=== PATIENT | female | born 1995 | race Hispanic/Latino ===

== ENCOUNTER 2016-10-07 23:03 | Emergency (ER) | payer OTHER ==
[~2016-10-07] VITALS: Ht 162.6 cm; Wt 63.6 kg
[~2016-10-07 23:03] MED LIST: Ibuprofen PO
[2016-10-07 23:05] VITALS: BP 105/48; PULSE 82; RESP 16; O2SAT 99
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
[2016-10-07] MEDS ORDERED: _oxyCODONE/APAP 5-325 mg Tablet PO PRN (23:40)
[2016-10-07] MEDS ORDERED: oxyCODONE-Acetamin 5-325 mg Tablet PO ONE (23:40)
[2016-10-08 01:11] VITALS: BP 96/50; PULSE 72; RESP 16; O2SAT 100
[2016-10-08 01:12] VITALS: BP 96/50; PULSE 72; RESP 16; O2SAT 100
--- NOTE | 2016-10-08 11:19 | DRSVH ---
PROCEDURE: X-RAY RIGHT FOOT COMPLETE, MINIMUM THREE VIEWS ([id number]) INDICATIONS: trauma, bone graft injury TECHNIQUE: 3 views of the foot were acquired. COMPARISON: [facility], CR, XR BILAT ANKLE 3VW, 10/07/2016, 23:39. FINDINGS: Bones: Cortical irregularity and lucency present involving the base of the right first distal phalanx along the medial surface suspicious for fracture. Surgical hardware redemonstrated within the ankle incompletely visualized. Mild osteopenia. Soft tissues: No tibiotalar joint effusion. Achilles tendon appears normal. IMPRESSION: Findings suspicious for avulsion fracture involving the medial base of the first distal p halanx. Recommend correlation to point tenderness. Dictated by: Beto SIMENTAL Interpreted: Mattie Taylor MD on 10/08/2016 at 9:27 Transcribed by: MARNI on 10/08/2016 at 9:29 Approved by: Mattie Taylor M.D. on 10/08/2016 at 10:08
--- NOTE | 2016-10-08 11:19 | DRSVH ---
PROCEDURE: X-RAY BILATERAL ANKLE, 3 VIEWS INDICATIONS: trauma, bone graft injury TECHNIQUE: 3 views of the right and left ankle were acquired. COMPARISON: None. FINDINGS: Bones: Fixation hardware present involving the right tibia and fibula related to prior distal shaft f ractures. Hardware is in expected position with and there is what appears to be a fractured screw in volving the midshaft of the right tibia. Mild osteopenia. Within the left ankle, fixation plates is present involving the talus with multiple associated fixati on screws. Geographic lucencies involve the calcaneus likely related to prior calcaneal fracture and instrumentation. There is irregularity along the superior aspect of the mid calcaneus suggesting pr obable healing fracture. Mild osteopenia. Soft tissues: No tibiotalar joint effusion. Achilles tendon appears normal. IMPRESSION: Surgical hardware present bilaterally as above related to prior fractures. Recommend com parison with postoperative examinations for further evaluation to assess for interval bony/hardware c hanges. No definite acute bony abnormality seen. Dictated by: Beto SIMENTAL Interpreted: Mattie Taylor MD on 10/08/2016 at 9:09 Transcribed by: MARNI on 10/08/2016 at 9:15 Approved by: Mattie Taylor M.D. on 10/08/2016 at 10:08
--- NOTE | 2016-10-08 11:19 | DRSVH ---
PROCEDURE: X-RAY LEFT FOOT COMPLETE, MINIMUM THREE VIEWS ([id number]) INDICATIONS: trauma, bone graft injury TECHNIQUE: 3 views of the foot were acquired. COMPARISON: [facility], CR, XR FOOT 3VW RT, 10/07/2016, 23:39. [facility], C R, XR BILAT ANKLE 3VW, 10/07/2016, 23:39. FINDINGS: Bones: No fractures or dislocations. No suspicious bony lesions. Surgical hardware involves the ta il is which appears to be in expected position. Multiple geographic lucency is present involving the calcaneus related to previously removed surgical hardware. Cortical irregularity and lucency along the mid aspect of the superior calcaneus suggesting healing fracture. Bones are osteopenic. Soft tissues: No tibiotalar joint effusion. Achilles tendon appears normal. IMPRESSION: Post surgical changes and presumed healing calcaneal fracture. Comparison with old radio graphs would be helpful for further assessment if available. Dictated by: Beto Duran [facility] Interpreted: Mattie Taylor MD on 10/08/2016 at 9:33 Transcribed by: MARNI on 10/08/2016 at 9:34 Approved by: Mattie Taylor M.D. on 10/08/2016 at 10:08
== END 2016-10-08 01:13 | disposition home or self-care (01) ==
LOC: SED 23:03
DX: S99.912A Unspecified injury of left ankle, initial encounter (principal); S99.911A Unspecified injury of right ankle, initial encounter; X50.9XXA Other and unspecified overexertion or strenuous movements or postures, initial encounter; Y93.89 Activity, other specified; Y99.8 Other external cause status; Y92.89 Other specified places as the place of occurrence of the external cause; Z87.828 Personal history of other (healed) physical injury and trauma; Z98.890 Other specified postprocedural states